=== PATIENT | female | born 1990 | race Caucasian/White ===

== ENCOUNTER 2017-10-10 17:22 | Emergency (ER) | payer MEDICAID, SELFPAY ==
[2017-10-10 17:26] VITALS: BP 111/65; PULSE 76; RESP 17; TEMP 36.8; O2SAT 97; BMI 31.1
--- NOTE | 2017-10-10 17:57 | US_ITS ---
STUDY: ULTRASOUND TRANSVAGINAL CLINICAL: Female, 27 years old. Pelvic pain TECHNIQUE: Transvaginal COMPARISON: None. FINDINGS: Normal uterine size measuring 9.7 x 5.9 x 4.8 cm. There are no myometrial masses. Normal endometrial thickness measuring 3 mm. There are no endometrial masses, and there is no fluid in the endometrial cavity. Normal uterine cervix. Normal right ovary, measuring 2.2 x 2.0 x 1.3 cm. There are multiple follicles without a dominant cyst. Normal left ovary, measuring 2.2 x 1.8 x 1.6 cm. There are multiple follicles without a dominant cyst. There is no free fluid in the pelvis. US/Transvaginal Non- IMPRESSION: Unremarkable ultrasound of the pelvis. Electronically Signed: Stephen Bullock, at 18:49 EDT Tel , Service support ,
--- NOTE | 2017-10-10 18:04 | ED.DCSUM_ITS ---
- ER Visit Summary Date of Service: 10/10/17 Chief Complaint: Pelvic pain History of Present Illness: The patient is a 27 F states she is with 3 spontaneous miscarriages and 1 ectopic. Patient states for the last 2 weeks she has had pelvic pain gradual onset constant. She associated nausea and vomiting today. She states she has chronic diarrhea that is not new and has been there for more than 3 years. Today she felt a pop and 1 to be evaluated. [facility] and they center further evaluation. She denies any abdominal trauma she denies any dysuria she denies any fever. She has had both prior appendectomy, cholecystectomy and ovarian cyst removed. Physical Examination: Appearing young female. Vital signs are stable afebrile. No acute distress. H EENT exam unremarkable. Neck nontender. Lungs clear to auscultation bilaterally. Heart regular rhythm no murmur. Abdomen soft nondistended normal bowel sounds no peritoneal signs. Suprapubic tenderness mild. Moving all 4 extremities. Neurovascular intact. Back exam nontender. Neurologic exam unremarkable. Exam done female nurse present in the room external exam unremarkable. Speculum exam are small amount of old blood. No clots. No discharge. On bimanual exam she had minimal uterine tenderness. No adnexal masses or tenderness. No signs of PID. Test Results: Urine test is negative. Pelvic ultrasound was normal. UA is pending. Emergency Department Course and Treatment: She will be discharged home with telemetry pain of uncertain etiology. Follow-up with her SENIOR TECHNICAL MANAGER. Treatment Plan: Motrin for pain. Disposition: Discharge Impression: Acute pelvic pain of uncertain etiology This note was generated with [employer]or[employer] dictation software. It may contain incorrect words, spelling, and punctuation that were not noted in review of the chart prior to signing ED Disposition - Plan for ED Patient: Chief Complaint: Abd Pain Referrals: Care Physician,No Primary [Primary Care Provider] -
[2017-10-10 18:27] LABS: Internal QC Validated? YES +Cl - CLEAR BKGD; Pregnancy, Urine Negative Negative
[2017-10-10 19:24] VITALS: RESP 16
--- NOTE | 2017-10-10 19:24 | ED.RN ---
PT REQUESTING PAIN MEDICATION. DR. MAYFIELD AWARE, NO ORDERS RECEIVED.
--- NOTE | 2017-10-10 20:40 | ED.DEP ---
ED Disposition - Plan for ED Patient: Disposition: Home or Assisted Living Chief Complaint: Abd Pain Instructions: ED Pelvic Pain [facility] Referrals: Care Physician,No Primary [Primary Care Provider] - As soon as possible Additional Instructions: Tylenol and Motrin for pain. Follow-up with either your QUALITY ASSURANCE GROUP LEADER physician or your primary care physician.
[2017-10-10 20:43] VITALS: BP 113/75; PULSE 67; RESP 18; O2SAT 97
--- NOTE | 2017-10-10 20:44 | ED.RN ---
REVIEWED D/C INSTRUCTIONS, FOLLOW UP CARE, AND S/S THAT WOULD WARRANT A RETURN TO THE ED WITH PT. PT VERBALIZED AN UNDERSTANDING AND DENIES FURTHER QUESTIONS FOR THIS RN. PT SKIN P/W/D, RESP EVEN AND UNLABORED, PT A&O X 3, NO DISTRESS NOTED. PT AMBULATED OUT OF ED, GAIT STEADY.
== END 2017-10-10 20:44 | disposition home or self-care (01) ==
PROVIDERS: Emergency Provider Emergency Medicine
DX: R10.2 Pelvic and perineal pain (principal); R11.2 Nausea with vomiting, unspecified; K52.9 Noninfective gastroenteritis and colitis, unspecified; J45.909 Unspecified asthma, uncomplicated; Z72.0 Tobacco use; Z79.899 Other long term (current) drug therapy
CPT/HCPCS: 76830; 81025; 93976; 99282

== ENCOUNTER 2018-11-21 10:05 | Outpatient (CLI) | payer MEDICAID, SELFPAY ==
[2018-11-21 10:25] VITALS: BMI 31.8
--- NOTE | 2018-11-22 11:30 | OB.TRI.NOTE ---
History of Present Illness Date of Service: 11/21/18 Was patient seen by the physician?: No Reason For Visit: NST Final FLAVIA: 01/17/19 Final FLAVIA Source: US <20 weeks Gestational age: 32 Weeks and 0 Days Allergies adhesive Allergy (Verified 10/10/17 17:24) Other EATS MY SKIN cephalexin monohydrate [From Keflex] Allergy (Verified 10/10/17 17:24) Other MAKES MY TASTE BUDS FALL OFF Penicillins Allergy (Verified 10/10/17 17:24) Anaphylaxis morphine Adverse Reaction (Verified 10/10/17 17:24) Other makes pain worse NST - FHR Rate Baby A Baseline: 135 Variability:: Moderate Accelerations:: 15 x 15 Decelerations:: None NST Reactive:: Yes Uterine Activity:: quiet - FHR Rate Baby B Baseline: 135 Variability:: Moderate Accelerations:: 15 x 15 Decelerations:: None NST Reactive:: Yes Uterine Activity:: quiet Impression/Plan Reactive NST for di/di twins with baby B polyhydramnios
== END 2018-11-22 11:00 | disposition home or self-care (01) ==
LOC: WPOUT 10:20 → OBT 10:21
PROVIDERS: Referring Provider Obstetrics & Gynecology; Visit Provider Obstetrics & Gynecology
DX: O30.043 Twin pregnancy, dichorionic/diamniotic, third trimester (principal); O40.3XX2 Polyhydramnios, third trimester, fetus 2; Z88.0 Allergy status to penicillin; Z88.1 Allergy status to other antibiotic agents; Z3A.32 32 weeks gestation of pregnancy
CPT/HCPCS: 59025; 59050; 99218; G0378

== ENCOUNTER 2018-11-28 10:07 | Outpatient (CLI) | payer MEDICAID, SELFPAY ==
[2018-11-28 10:35] VITALS: BMI 32.3
--- NOTE | 2018-11-29 08:14 | OB.TRI.NOTE ---
History of Present Illness Reason For Visit: NST Final FLAVIA Source: US <20 weeks Allergies adhesive Allergy (Verified 11/28/18 10:36) Other EATS MY SKIN cephalexin monohydrate [From Keflex] Allergy (Verified 11/28/18 10:36) Other MAKES MY TASTE BUDS FALL OFF Penicillins Allergy (Verified 11/28/18 10:36) Anaphylaxis morphine Adverse Reaction (Verified 11/28/18 10:36) Other makes pain worse NST - FHR Rate Baby A Baseline: 135 Variability:: Moderate Accelerations:: 15 x 15 Decelerations:: None NST Reactive:: Yes Uterine Activity:: quiet - FHR Rate Baby B Baseline: 130 Variability:: Moderate Accelerations:: 15 x 15 Decelerations:: None NST Reactive:: Yes Uterine Activity:: quiet Impression/Plan Reactive NST x2 for di/di twins, 6/8 BPP in office Now complete BPP is 8/10 for baby A & B
== END 2018-11-28 11:25 | disposition home or self-care (01) ==
LOC: WPOUT 10:29 → WP 10:30
PROVIDERS: Referring Provider Obstetrics & Gynecology; Visit Provider Obstetrics & Gynecology
DX: O30.049 Twin pregnancy, dichorionic/diamniotic, unspecified trimester (principal)
CPT/HCPCS: 59025; 59050; 99218; G0378

== ENCOUNTER 2018-12-11 21:30 | Inpatient (IN) | payer MEDICAID, SELFPAY ==
[2018-12-11 19:16] VITALS: BMI 32.4
[2018-12-11 19:34] LABS: ROM Internal Control Test YES-OK TO RESULT pt. (Internal QC); ROM Patient Test Negative (Negative)
[2018-12-11] MEDS: Lactated Ringers 1,000 ML 500 ML IV (20:30)
[2018-12-11] MEDS: Betamethasone/Betamethasone 30 MG/5 ML Vial 12 MG IM (20:36)
[2018-12-11 21:41] LABS: Mean Corp Hgb Conc 34.4 g/dL (32-36); Mean Corpuscular Hgb 31.2 pg (27.0-32.0); Mean Corpuscular Volume 90.7 fL (81-99); Mean Platelet Vol. 11.6 fl (6.2-12.0); Platelet Count 200 K/mm3 (150-450); RBC Distribution Width CV 13.5 % (11.6-14.6); RBC Distribution Width SD 44.6 fl (35.1-43.9); Red Blood Count 3.53 M/mm3 (4.2-5.4); White Blood Count 15.1 K/mm3 (4.4-11.0)
--- NOTE | 2018-12-11 21:45 | HP.PCM_ITS ---
History Date of Admission: 12/11/18 Final FLAVIA: 01/17/19 Final FLAVIA Source: US <20 weeks Gestational age: 34 Weeks and 5 Days History of this : This is a 28 year-old, G [], P [], at weeks gestational age. Surgical History: Surgical History (Last Updated 12/11/18 @ 21:47 by Luis Maldonado) History of laparoscopy Z98.890 Hx laparoscopic cholecystectomy Z90.49 Allergies adhesive Allergy (Verified 11/28/18 10:36) Other EATS MY SKIN cephalexin monohydrate [From Keflex] Allergy (Verified 11/28/18 10:36) Other MAKES MY TASTE BUDS FALL OFF Penicillins Allergy (Verified 11/28/18 10:36) Anaphylaxis morphine Adverse Reaction (Verified 11/28/18 10:36) Other makes pain worse Home Medications: Home Medications Albuterol IH (ProAir) [Proair Hfa (SP)Vent Pts] 1 - 2 puff INHALATION Q4H PRN PRN 10/10/17 Smoking Status: Current every day smoker Alcohol: None Number of Fetus(es): 2 NST - FHR Rate Baby A Baseline: 135 Variability:: Moderate Accelerations:: 15 x 15 Decelerations:: Variable Uterine Activity:: Q 2-4 minutes - FHR Rate Baby B Baseline: 140 Variability:: Moderate Accelerations:: 15 x 15 Decelerations:: Variable, Prolonged Uterine Activity:: Q 2-4 minutes History Past Pregnancies: Past Pregnancies Delivery Date Name GA/Weeks Outcome Route Weight Gender Labor Length Anesthesia Delivery Location Provider FOB Labs: See [facility] H&P Physical Exam General: Alert, Oriented x3 Abdomen: Soft, Non Tender, Non-Distended, Gravid Neurological: Cranial nerves II-XII grossly intact PSYCHOSOCIAL REHABILITATION COUNSELOR: Normal external genitalia Estimated gestational size: Appropriate for gestational size Presentation: Cephalic Cervix Dilation (cm): 4 - BBOW Station: -2 Effacement (%): 50 Assessment/Plan This is a 28 year-old, at 34&5 weeks gestational age in PTL. Admit to L&D. Di/di twins - TAUS shows vtx/breech. FWB - overall reassuring. Baby B s/p prolonged decels. BMZ #1 given. MOD - patient counseled extensively during the & again today. She wishes to proceed with a primary for malpresentation of baby B. She declines possible breech extraction of a 2nd twin. Sterilization request. H/o maternal drug use - check utox. Plan for social work consult.
[2018-12-11] MEDS: Lactated Ringers 1,000 ML 150 ML IV (21:46)
[2018-12-11] MEDS: Sodium Citrate/Citric Acid 30 ML UDC PO (21:46)
[2018-12-11 22:15] LABS: Amphetamine Urine VISTA NEGATIVE (<1000 ng/mL); Barbiturate Urine VISTA NEGATIVE (< 200 ng/mL); Benzodiazepine Urine VISTA NEGATIVE (< 200 ng/mL); Cocaine Urine VISTA NEGATIVE (< 300 ng/mL); Ecstacy Urine VISTA NEGATIVE (< 500 ng/mL); Methadone Urine VISTA NEGATIVE (< 300 ng/mL); PCP Urine VISTA NEGATIVE (< 25 ng/mL); THC Urine VISTA NEGATIVE (< 50 ng/mL); Vista UDS pH Range 6
[2018-12-11] MEDS: Oxytocin 30 units/NS 500 ml 30 UNITS/500 ML IV.SOLN 167 UNITS IV (22:36)
[2018-12-11] MEDS: Ketorolac 30 MG/ML Syringe IV (22:58)
--- NOTE | 2018-12-11 23:24 | OP.PCM_ITS ---
Report of Operation Date of Procedure: 12/11/18 Pre-Operative Diagnosis: (1) Di/di twins at 34&5 (2) labor (3) Baby B breech presentation (4) Baby B polyhydramnios (5) Sterilization request Post-Operative Diagnosis: Same Surgery/Procedure Performed:: Primary low transverse section and bilateral tubal ligation Description of Surgical Findings:: Normal maternal uterus and adnexa coffee attendant: Lexi Riddle Type of Anesthesia:: Spinal Specimen's removed: Placenta Drains: talbot Estimated Blood Loss (mL): 800ml Fluids Replaced: 2100ml - Complications None - Admit VTE Documentation VTE Present on Admission: No Delivery Classification: REI Final FLAVIA: 01/17/19 Gestational age: 34 Weeks and 5 Days Description of Procedure: Patient taken to OR where spinal anesthesia was placed. She was prepped and draped in the normal sterile fashion in a dorsal supine position with a leftward tilt. After ensuring adequacy of anesthesia the Pfannensteil skin incision was made and carried through to the underlying fascia with a bovie. The fascia was incised in the midline and carried laterally with the Narayan scissors. The rectus muscles were in the midline and the peritoneum was entered bluntly. The bladder flap was dissected down with the Metzenbaum scissors and blunt dissection. The uterine incision was made with the scalpel and extended with gentle cephalocaudad traction. Baby A was vertex and the head was brought to the incision in the flexed position (amniotomy occurred at this time). With good fundal pressure the head easily delivered. The shoulders & body easily followed. Baby A's 3VC was clamped & cut. Baby A was handed to a waiting pediatric speech language pathologist. Baby B's feet were grasped & brought to the uterine incision. Amniotomy was performed & fetus B was delivered with typical breech maneuvers. Baby B's 3VC was clamped and cut. Baby B was handed off to waiting RN. The placentas were delivered with gentle traction and fundal massage and the uterus was exteriorized and cleared of all clots and debris. The uterine incision was closed with 1 vicryl suture in a running locked fashion. A figure of eight suture was placed on the right side of the uterine incision. Bovie cautery was used to further obtain hemostasis. Uterus was returned to the abdominal cavity. The right fallopian tube was grasped & doubly suture ligated. Tube segment excised & hemostasis confirmed at tubal site. Process repeated on the left side & again hemostasis confirmed. Pelvis was irrigated and cleared of all clots and debris. The uterine incision was reexamined and found to be hemostatic. Some facundo was placed over the uterine incision due to the denuded areas. Tubal sites were reexamined and found to be hemostatic with sutures intact. The parietal peritoneum was reapproximated with running plain gut suture. The fascia was closed with looped PDS suture in a running standard fashion. The subcutaneous tissue was examined, any bleeding bovie cauterized. The subcutaneous tissue was reapproximated with plain gut suture. The skin was closed in a subcuticular fashion by the FOURDRINIER TENDER with me present in the labor and delivery suite. I performed the remainder of the procedure with assistance. Amniotic Membrane Rupture Type: Artificial Amniotic Fluid Description: Clear Placenta Disposition: [facility] Drain: Talbot to straight drain Cord Vessel Description: 3 Vessels Infant Gender: Male - Baby A - Preston (1 minute): 8 (5 minute): 8 Pre-op Antibiotic Given: Clindamycin 600mg IV x1 and Gentamicin 1.5mg/kg IV x1 Baby B - Information Amniotic Membrane Rupture Type: Artificial Presentation: Footling Breech - Operative Information Cord Entanglement: None Cord Vessel Description: 3 Vessels B gender: Male - Baby B - Adilson (1 minute): 8 (5 minute): 9
[2018-12-11 23:44] VITALS: BP 118/53; BP 133/74; PULSE 69; RESP 18; TEMP 36.2; O2SAT 100
[2018-12-11 23:52] VITALS: BP 133/74; BP 95/44; PULSE 63; RESP 16; TEMP 36.3; O2SAT 99
[2018-12-12] VITALS (25 sets, daily range): BP systolic 82–133; BP diastolic 34–74; PULSE 53–90; RESP 16–18; TEMP 35.9–36.5; O2SAT 97–100
[2018-12-12] MEDS: Oxytocin 30 units/NS 500 ml 30 UNITS/500 ML IV.SOLN 167 UNITS IV (00:01)
[2018-12-12] MEDS: Lactated Ringers 1,000 ML 100 ML IV (00:02)
--- NOTE | 2018-12-12 03:05 | NURSING ---
0130 pt plans to breastfeed twins. early and frequent pumping discussed with pt and fob-pt verbalized understanding. pt wanting to go see babies is [facility], states will pump when returns from [facility]
--- NOTE | 2018-12-12 04:08 | NURSING ---
As RN entered room pt playing on phone. pt tearful. states queta had to leave because my family sucks and he had to last picker my daughter and take her to a sitter, he probably wont be back today because he'll probably play video games, its just whatever. emotional support given. will continue to monitor
--- NOTE | 2018-12-12 04:29 | NURSING ---
pt c/o increased itching and requesting medication. [facility] SUPERVISOR OPERATIONS called for orders. Pharmacy called, morphine allergy discussed with pharmacist-reaction being increased pain. okay to give nubain per pharmacist
[2018-12-12] MEDS: Nalbuphine 10 MG/ML Ampul 5 MG IV (05:16)
[2018-12-12] MEDS: Ketorolac 30 MG/ML Syringe IV (05:16)
[2018-12-12] MEDS: 0.9% Saline Lock 10 ML Syringe IV (05:16)
[2018-12-12 05:41] LABS: Hematocrit 28.3 % (37-47); Hemoglobin 9.6 g/dL (12.0-15.0); Mean Corp Hgb Conc 33.9 g/dL (32-36); Mean Corpuscular Volume 91.3 fL (81-99); Mean Platelet Vol. 11.4 fl (6.2-12.0); Platelet Count 179 K/mm3 (150-450); RBC Distribution Width CV 13.5 % (11.6-14.6); RBC Distribution Width SD 44.8 fl (35.1-43.9); White Blood Count 23.6 K/mm3 (4.4-11.0)
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
--- NOTE | 2018-12-12 06:39 | NURSING ---
RN entered room, pt unhooked all monitors and was standing in bathroom attempting to empty talbot cath into toilet. IV tubing stretched tight across bed, RN reinforced importance of calling staff for assistance before getting out of bed. pt stated well i called and i needed to get breakfast to the boys IV SL, pt swabbed breast milk out of bottles and ambulated to [facility]
--- NOTE | 2018-12-12 07:22 | PCM.PN.OB ---
Subjective: Patient seen in the special care nursery. Patient reports is doing well. Patient denies any chest pain, shortness of breath, nausea, vomiting area patient is up ambulating without difficulty. Hoyos catheter still in place. Mild lochia. Pain well controlled. denies flatus at this time - Physical Exam General: Alert, Oriented x3 Abdomen: Soft, - - Fundus firm at the umbilicus. Dressing dry and intact. Extremities: No Calf Tenderness Vital Signs Temp Pulse Resp BP Pulse Ox 97.1 F L 56 L 18 102/48 L 97 12/12/18 05:13 12/12/18 06:15 12/12/18 06:15 12/12/18 05:13 12/12/18 06:15 Oxygen Delivery Method Room Air Weight: 75.296 kg Body Mass Index (BMI) 32.4 Intake and Output for Last 24 Hours 12/10/18 12/11/18 12/12/18 23:59 23:59 23:59 Intake Total 2500 / 2500 1335 / 1335 Output Total 100 / 100 2150 / 2150 Balance 2400 / 2400 -815 / -815 Laboratory Tests Past 24 Hrs 12/11/18 12/11/18 12/11/18 19:05 20:30 20:30 WBC 15.1 H RBC 3.53 L Hgb 11.0 L Hct 32.0 L MCV 90.7 MCH 31.2 MCHC 34.4 RDW Std Deviation 44.6 H RDW Coeff of Daniel 13.5 Plt Count 200 MPV 11.6 Vag Amniotic Fld Detect Negative Urine Opiates Screen Urine Methadone Screen Ur Barbiturates Screen Ur Phencyclidine Scrn Ur Amphetamines Screen U Methamphetamin-MDMA U Benzodiazepines Scrn Urine Cocaine Screen U Cannabinoids Screen Ur Drug Screen Comment Blood Type A NEGATIVE Antibody Screen TNP 12/11/18 12/11/18 12/12/18 20:30 21:50 05:30 WBC 23.6 H RBC 3.10 L Hgb 9.6 L Hct 28.3 L MCV 91.3 MCH 31.0 MCHC 33.9 RDW Std Deviation 44.8 H RDW Coeff of Daniel 13.5 Plt Count 179 MPV 11.4 Vag Amniotic Fld Detect Urine Opiates Screen NEGATIVE Urine Methadone Screen NEGATIVE Ur Barbiturates Screen NEGATIVE Ur Phencyclidine Scrn NEGATIVE Ur Amphetamines Screen NEGATIVE U Methamphetamin-MDMA NEGATIVE U Benzodiazepines Scrn NEGATIVE Urine Cocaine Screen NEGATIVE U Cannabinoids Screen NEGATIVE Ur Drug Screen Comment Blood Type Antibody Screen NEGATIVE Medical Necessity - Tobacco Use Smoking Status: Current every day smoker Assessment/Plan Postop day #1, doing well Routine care DC Hoyos Pain management Ambulation
--- NOTE | 2018-12-12 07:30 | NURSING ---
Patient expresses desire to have her Talbot catheter and her IV taken out. Patient has been up out of bed without s/s dizziness. Tolerated pain well. Dr. Case notified. She states that her talbot can come out this morning. Will try patient on PO Motrin q6h prn for pain in place of Toradol. Will ensure patient can tolerate pain appropriately on PO medication prior to removing IV. Patient does not want opioids ordered due to prior addiction.
--- NOTE | 2018-12-12 09:12 | FALS_PTH ---
PATIENT: BLANCA DIETZ LOC: [facility] U#:[id number] AGE/SX: 28/F ROOM: WP003 RE12/11/[address]: Dr. Luis Maldonado MD : 1990 BED: 1 DIS: 12/14/2018 SPEC #: [id number] RECD: 12/12/18 12:18 STATUS: TODD RESwathi #: [id number] FADY: 12/12/18 09:[address]: Luis Maldonado DEPT: SURGICAL PATHOLOGY RECD BY: Ced Sanon ENTERED: 12/12/18 12:19 SP TYPE: FALL TUBES OTHR DR: No Primary Care Phys Tissues: Fallopian tube Procedures: Surgery Specimen Level II HEADER OPERATION: Tubal ligation PRE-OP DIAGNOSIS: Sterilization TISSUE SUBMITTED: Fallopian tubes MICROSCOPIC DIAGNOSIS Bilateral fallopian tubes, tubal ligation: Completely transected segments of bilateral fallopian tubes, no pathologic diagnosis. BERNARD:rupal 12/15/18 MICROSCOPIC DESCRIPTION Slides are reviewed. GROSS DESCRIPTION Received is one container labeled with the patient's name and not further designated. The specimen consists of two tubular pieces of woodruff soft tissue measuring 1.5 cm in length and 0.5 cm in diameter and 1 cm in length and 0.5 cm in diameter. The entire specimen is submitted in two cassettes with each cassette containing one piece. Both pieces will be sectioned at the time of embedding. / SJ:rupal 12/12/18 TC: 4 [facility]: [id number] x2
[2018-12-12] MEDS: Senna/Docusate Sodium 1 Tablet PO (11:35)
[2018-12-12] MEDS: Ibuprofen 600 MG Tablet PO ×2 (11:35→19:58)
--- NOTE | 2018-12-12 12:45 | NURSING ---
Patient is adamant that she would like her IV taken out so she can leave the unit. Explained to patient that I would like to give her pain medication more time to ensure it will work before removing the IV, but patient called me to her room 5 times in 30 minutes to ask to remove it. The hospital's policy about leaving the unit AMA to smoke or for any reason was reviewed with patient. Patient expresses understanding. Release of liability form signed. Patient states pain is tolerable and she can walk without assistance.
--- NOTE | 2018-12-12 14:02 | NURSING ---
Patient has ambulated in halls multiple times this shift. Tolerating pain well.
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
[2018-12-12] MEDS: Acetaminophen 500 MG Tablet 1000 MG PO (15:50)
[2018-12-13] MEDS: Acetaminophen 500 MG Tablet 1000 MG PO ×3 (00:51→19:42)
[2018-12-13 00:57] VITALS: BP 91/40; PULSE 52; RESP 16; TEMP 36.1; O2SAT 99
[2018-12-13] MEDS: Ibuprofen 600 MG Tablet PO ×3 (04:07→22:00)
[2018-12-13 04:33] LABS: Absolute Lymphocyte Count 2.84 X10^3/uL (0.83-4.51); Absolute Neutrophil Count 15.4 X10^3/uL (2.0-7.7); Basophil# 0.02 X10^3/uL; Basophil% 0.1 % (0-1); Eosinophils% 0.5 % (0-5); Hematocrit 27.1 % (37-47); Hemoglobin 9.1 g/dL (12.0-15.0); Lymphocyte # 2.84 X10^3/ul (4.0); Lymphocyte % 14.2 % (19-41); Mean Corp Hgb Conc 33.6 g/dL (32-36); Mean Corpuscular Hgb 31.2 pg (27.0-32.0); Mean Corpuscular Volume 92.8 fL (81-99); Monocyte# 1.41 X10^3/uL; Monocyte% 7.1 % (0-10); NRBC Flagged by Analyzer 0 % (0-5); Neutrophil # 15.39 X10^3/uL (2.7-7.7); Platelet Count 211 K/mm3 (150-450); RBC Distribution Width CV 13.8 % (11.6-14.6); RBC Distribution Width SD 46.9 fl (35.1-43.9); Red Blood Count 2.92 M/mm3 (4.2-5.4)
[2018-12-13 09:00] VITALS: BP 93/42; PULSE 66; RESP 18; TEMP 36.1
--- NOTE | 2018-12-13 11:06 | PCM.PN.OB ---
Subjective: pt seen in [facility]- doing well. Pt reports good pain control. lochia mild. Passing flatus, lochia mild. ambulating well. some nausea but no vomiting. - Physical Exam General: Alert, Oriented x3 Abdomen: Soft, Non-Distended, - - fundus firm. dressing dry and intact Extremities: No Calf Tenderness Vital Signs Temp Pulse Resp BP Pulse Ox 97 F L 66 18 93/42 L 99 12/13/18 09:00 12/13/18 09:00 12/13/18 09:00 12/13/18 09:00 12/13/18 00:57 Oxygen Delivery Method Room Air Weight: 75.296 kg Body Mass Index (BMI) 32.4 Intake and Output for Last 24 Hours 12/11/18 12/12/18 12/13/18 23:59 23:59 23:59 Intake Total 2500 / 2500 1335 / 1335 240 / 240 Output Total 100 / 100 3050 / 3050 Balance 2400 / 2400 -1715 / -1715 240 / 240 Laboratory Tests Past 24 Hrs 12/13/18 04:13 WBC 20.0 H RBC 2.92 L Hgb 9.1 L Hct 27.1 L MCV 92.8 MCH 31.2 MCHC 33.6 RDW Std Deviation 46.9 H RDW Coeff of Daniel 13.8 Plt Count 211 MPV 12.0 Immature Gran % (Auto) 1.100 H Neut % (Auto) 77.0 H Lymph % (Auto) 14.2 L Sampson % (Auto) 7.1 Eos % (Auto) 0.5 Baso % (Auto) 0.1 Absolute Neuts (auto) 15.4 H Absolute Lymphs (auto) 2.84 Nucleated RBC % 0 Medical Necessity - Tobacco Use Smoking Status: Current every day smoker Assessment/Plan Stop day #2, doing well Ambulation Routine care Pain management Consider DC home tomorrow
[2018-12-13 17:10] VITALS: BP 110/60; PULSE 62; RESP 18; TEMP 36.5
[2018-12-13 20:16] VITALS: BP 103/57; PULSE 64; RESP 18; TEMP 36.4; O2SAT 97
[2018-12-13] MEDS: oxyCODONE 5 MG Tablet PO (22:47)
[2018-12-14 02:04] VITALS: BP 100/53; PULSE 64; RESP 18; TEMP 36.3; O2SAT 98
[2018-12-14] MEDS: Ibuprofen 600 MG Tablet PO ×2 (07:16→13:53)
[2018-12-14 09:30] VITALS: BP 106/61; PULSE 50; RESP 18; TEMP 36.1
--- NOTE | 2018-12-14 10:50 | PN.OBGYN_ITS ---
Subjective: Patient seen at bedside doing well. Patient reports good pain control. Mild lochia. Passing flatus. Denies any bowel movement at this time. Voiding without difficulty. Patient is requesting DC to hotel status today. Breast- feeding well. Twins are in special care nursery still at this time. - Physical Exam General: Alert, Oriented x3 Abdomen: Soft, Non-Distended, - - Fundus firm. Incision site dry and intact. Extremities: No Calf Tenderness Vital Signs Temp Pulse Resp BP Pulse Ox 97.4 F L 64 18 100/53 L 98 12/14/18 02:04 12/14/18 02:04 12/14/18 02:04 12/14/18 02:04 12/14/18 02:04 Oxygen Delivery Method Room Air Weight: 75.296 kg Body Mass Index (BMI) 32.4 Intake and Output for Last 24 Hours 12/12/18 12/13/18 12/14/18 23:59 23:59 23:59 Intake Total 1335 / 1335 240 / 240 Output Total 3050 / 3050 Balance -1715 / -1715 240 / 240 Medical Necessity - Tobacco Use Smoking Status: Current every day smoker Assessment/Plan Postoperative day #3, doing well Pain management Ambulation DC to hotel status
--- NOTE | 2018-12-14 10:56 | DCINST_ITS ---
Discharge Diet: No Restrictions Discharge Activity: Return to Normal Activity, May Not Drive - for 2 weeks, May not drive while taking narcotic pain medications., May Shower, May Take a Tub Bath - in 7 days. May resume sexual activity in: 4-6 weeks Lifting Restrictions: 20 pounds Additional Activity Instructions:: Nothing in the vagina for 4-6 weeks. You may return to work/school in 6 weeks. Call your doctor if your incision/area has: Continuous Slow Oozing, Sudden Increased Bleeding, Increased Pain/ Swelling, Increased Redness, Foul Smelling Discharge Call your doctor if you observe: Fever of 101 or Higher, Using more than one pad per hour - for 2 hours Suture Line Care: Avoid Pulling/Pushing, Avoid Pinching/Bending Cleanse incision/area with: Keep Dressing Clean & Dry Additional Instructions: If you experience any of the following, contact your healthcare provider. * Bleeding that soaks a pad every hour for 2 hours * Fever 100.4 or higher * Unrelieved incision or abdominal pain * Swelling, redness, discharge or bleeding from your incision or episiotomy site * Your incision begins to separate * Problems urinating (including inability to urinate or burning while urinating). * Visual changes * Severe headache * Flu-like symptoms * Pain or redness in one of both of your breasts * Pain, warmth, tenderness or swelling in your legs, especially the calf area * Frequent nausea and vomiting * Symptoms of depression or anxiety If you experience any of the following, call 911 or go to the nearest Emergency Room. * Chest pain * Problems breathing * Seizure activity * Partial or complete paralysis of a body part, slurred speech, weakness or drooping of the face, or a sudden inability to walk or hold your balance Allergies/Adverse Reactions: Allergies adhesive Allergy (Verified 11/28/18 10:36) Other EATS MY SKIN cephalexin monohydrate [From Keflex] Allergy (Verified 11/28/18 10:36) Other MAKES MY TASTE BUDS FALL OFF Penicillins Allergy (Verified 11/28/18 10:36) Anaphylaxis morphine Adverse Reaction (Verified 11/28/18 10:36) Other makes pain worse Medications to take at Discharge Albuterol IH (ProAir) [Proair Hfa] 1 - 2 puff INHALATION Q4H PRN PRN 10/10/17 Oxycodone HCl/Acetaminophen [Percocet 5/325] 1 tablet PO Q4H PRN PRN 7 Days #20 tablet 12/14/18 Senna/Docusate Sodium [Senokot-S] 1 tab PO DAILY PRN #20 tab 12/14/18 SimETHICONE [Mylicon] 80 mg PO PCHS PRN #30 tab 12/14/18 The following prescriptions were given: SimETHICONE [Mylicon] 80 mg PO PCHS PRN #30 tab PRN Reason: Indigestion/stomach pain Transmission Status: Pending to [id number] [place] [address] Oxycodone HCl/Acetaminophen [Percocet 5/325] 1 tablet PO Q4H PRN PRN 7 Days #20 tablet PRN Reason: Pain Transmission Status: Received by [address] Senna/Docusate Sodium [Senokot-S] 1 tab PO DAILY PRN #20 tab PRN Reason: Constipation Transmission Status: Pending to [facility] [place] [address] Follow-Up: Call to make an appointment with your doctor for an incision check in 1-2 weeks. You will also need a 6 week post- follow up appointment. Test results from this visit will be discussed in further detail at your follow- up appointment, if applicable. Please Follow Up With: Merlyn Gonzales MD - Call to make an appointment for an incision check in 1-2 [phone] When: You will need a post- check in 6 weeks. Primary Care Physician: Care Physician,No Primary [Primary Care Provider] -
--- NOTE | 2018-12-14 10:58 | PCM.DC.BLA ---
Discharge Summary Date of Admission: 12/11/18 Date of Discharge: 12/14/18 Summary: Was admitted to [facility] on November in labor. Patient underwent a primary low transverse section for twin gestation with malpresentation of twin B. Patient declined a vaginal delivery with breech extraction for twin B. With a tubal ligation by Dr. Luis Maldonado. Patient had an uncomplicated recovery and postoperative period. Patient was discharged home on postoperative day #3 in stable condition. Patient will stand hotel status as her twins are in the special care nursery. - Physical Exam Vital Signs Temp Pulse Resp BP Pulse Ox 97.4 F L 64 18 100/53 L 98 12/14/18 02:04 12/14/18 02:04 12/14/18 02:04 12/14/18 02:04 12/14/18 02:04 Oxygen Delivery Method Room Air Weight: 75.296 kg Body Mass Index (BMI) 32.4 Intake and Output for Last 24 Hours 12/12/18 12/13/18 12/14/18 23:59 23:59 23:59 Intake Total 1335 / 1335 240 / 240 Output Total 3050 / 3050 Balance -1715 / -1715 240 / 240
[2018-12-14] MEDS: Acetaminophen 500 MG Tablet 1000 MG PO (11:02)
[2018-12-14] MEDS: Senna/Docusate Sodium 1 Tablet PO (11:02)
[2018-12-14 13:55] VITALS: BP 98/57; PULSE 51; RESP 18; TEMP 36.6
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
[2018-12-15 13:37] LABS: Pathology Specimen OB SEE PATHOLOGY REPORT
== END 2018-12-14 14:05 | disposition home or self-care (01) | DRG 540 ==
LOC: WPOUT 21:32
PROVIDERS: Obstetrics & Gynecology; Admitting Provider Obstetrics & Gynecology; Visit Provider Obstetrics & Gynecology
DX: O30.043 Twin pregnancy, dichorionic/diamniotic, third trimester (principal); O60.14X1 Preterm labor third trimester with preterm delivery third trimester, fetus 1; O60.14X2 Preterm labor third trimester with preterm delivery third trimester, fetus 2; O32.1XX2 Maternal care for breech presentation, fetus 2; O40.3XX2 Polyhydramnios, third trimester, fetus 2; Z30.2 Encounter for sterilization; O76 Abnormality in fetal heart rate and rhythm complicating labor and delivery; J45.909 Unspecified asthma, uncomplicated; O99.334 Smoking (tobacco) complicating childbirth; F17.200 Nicotine dependence, unspecified, uncomplicated; Z3A.34 34 weeks gestation of pregnancy; Z37.2 Twins, both liveborn
CPT/HCPCS: 59025; 59050; 80307; 84112; 85025; 85027; 86850; 86900; 86901; 88302; 94760; 96372; 99218; J7120; A4216; G0378; J0702; J2405